=== PATIENT | male | born 1950 | race Caucasian/White ===

== ENCOUNTER 2018-04-18 05:30 | Observation (INO) | payer MEDICARE, BC ==
[~2018-04-18] VITALS: Ht 185.4 cm; Wt 93.4 kg
[2018-04-18 07:19] LABS: APTT 34.9 SECONDS (22.8-39.4)
[2018-04-18 07:20] LABS: BASOPHILS 2.7 % (0-2); EOSINOPHILS 10.6 % (0-7); HEMATOCRIT 31.4 % (42.0-54.0); HEMOGLOBIN 10.5 g/dL (13.5-17.5); IMMATURE GRANULOCYTES 0.2 % (0-5); LYMPHOCYTES 15.7 % (15-50); MCH 28.2 pg (26.0-34.0); MCHC 33.4 g/dL (31.0-37.0); MCV 84.4 fL (80.0-100.0); MEAN PLATELET VOLUME 9.3 fL (7.4-10.4); MONOCYTES 6.1 % (2-11); NEUTROPHILS 64.7 % (40-80); PLATELET COUNT 104 10x3/uL (130-400); RBC 3.72 10x6/uL (4.20-6.10); RDW 15.9 % (11.5-14.5); WBC 4.1 10x3/uL (4.8-10.8)
[2018-04-18 07:21] LABS: INR 1.33 (0.85-1.17)
[2018-04-18 07:24] LABS: ALBUMIN 3.1 g/dL (3.4-5.0); ANION GAP 23.1 mmol/L (8-16); BILIRUBIN - TOTAL 0.82 mg/dL (0.2-1.3); CALCIUM 7.4 mg/dL (8.5-10.1); CARBON DIOXIDE 16.2 mmol/L (21.0-32.0); CREATININE - SERUM 9.1 mg/dL (0.6-1.3); POTASSIUM - SERUM 4.3 mmol/L (3.5-5.1); PROTEIN - SERUM 6.2 g/dL (6.4-8.2)
[2018-04-18] MEDS ORDERED: HYDRALAZINE HCL50 MG PO (07:38)
[2018-04-18 07:47] VITALS: BP 182/93; BMI 27.2
--- NOTE | 2018-04-18 10:37 | NUR ---
ANES AT BEDSIDE, DISCHARGE CRITERIA MET
--- NOTE | 2018-04-18 10:45 | NUR ---
REC'D FROM RR. MOANING WITH PAIN HOWEVER HAD REC'D BURENEX IN RR AND IS ON O2 AT 4L/MIN NC. RATES PAIN 5/10. FALLS TO SLEEP WHEN TALKING WITH HIM.
--- NOTE | 2018-04-18 11:15 | NUR ---
CONTINUES TO LAY IWTH EYES CLOSED. FAMILY AT BEDSIDE. DRESSING CDI TO ABD.
--- NOTE | 2018-04-18 11:45 | NUR ---
DROWSY. AROUSES TO VERBAL STIMULI. ICE CHIPS BROUGHT TO PT. FAMILY AT BEDSIDE.
--- NOTE | 2018-04-18 12:45 | NUR ---
FL TRAY BROUGHT TO PT. TOLERATING ICE CHIPS.
--- NOTE | 2018-04-18 13:00 | NUR ---
PATIENT NAUSEATED WITH NO EMESIS. ABDOMINAL BINDER APPLIED TO ABDOMEN PER ORDERS.
--- NOTE | 2018-04-18 13:20 | NUR ---
ZOFRAN 4MG IV ADMINISTERED FOR NAUSEA. COOL CLOTH APPLIED TO HEAD. SCOPOLAMIN PATCH APPLIED. BEHIND PATIENT'S EAR.
--- NOTE | 2018-04-18 14:36 | NUR ---
CONTINUES TO SLEEP. HEAD OF BED RAISED. ENCOURAGED TO TRY AND EAT. FAMILY AT BEDSIDE.
--- NOTE | 2018-04-18 15:18 | NUR ---
EPISODE OF BEING NAUSEATED AFTER EATING PUDDING AND ICE CREAM. JELLO AND ICE CHIPS BROUGHT TO PATIENT. FAMILY AT BEDSIDE.
--- NOTE | 2018-04-18 16:10 | NUR ---
TOLERATED ICE CHIPS AND JELLO. IV DC'D WITH CATHETER INTACT. WRITTEN AND VERBAL DC INST. GIVEN TO PT'S . VERBALIZED UNDERSTANDING.
--- NOTE | 2018-04-18 16:15 | NUR ---
WHEN PATIENT'S SPOUSE STARTED HELPING HIM DRESS HE BEGAN TO TRY AND THROW UP AGAIN. BECOMES DIZZY WITH MOTION.
--- NOTE | 2018-04-18 16:55 | NUR ---
CALLED DR ELISE'S OFFICE HOWEVER HE IS AT THE [facility] TODAY.OFFICE GAVE ME CELL PHONE NUMBER. CALLED CELL NUMBER UNSUCCESSFULLY. MESSAGE AND NUMBER LEFT FOR CALL BACK.
--- NOTE | 2018-04-18 17:05 | NUR ---
COMES TO NURSE'S STATIONN RELATING HE GOT HIS PANTS ON AND RELATED THEY WERE READY. TOLD I HAD A CALL INTO DR ELISE AND WE WOULD SEE WHAT HE WANTS TO DO,
--- NOTE | 2018-04-18 17:30 | NUR ---
CALLED DR ELISE. RELATES TO ADMIT HIM TO DR NEGRON OBSERVATION BED ON MED 2.
--- NOTE | 2018-04-18 17:35 | NUR ---
SPOKE WITH SALES DEVELOPMENT REPRESENTATIVE FOR AN OBSERVATION BED.
--- NOTE | 2018-04-18 17:45 | NUR ---
SPOKE WITH ANSWERING SERVICE FOR DR NEGRON. EDUARDO LEFT FOR CALLBACK REGARDING ASDMISSION OF PATIENT.
--- NOTE | 2018-04-18 17:55 | NUR ---
Tu DALTON. ANP WITH NEPHROLOGY CALLED AND RELATED WOULD LET DOCTORS KNOW PATIENT IS BEING ADMITTED. NO ORDERS RECEIVED.
--- NOTE | 2018-04-18 17:55 | NUR ---
SARITA JORDNA, ANP WITH NEPHROLOGY CALLED AND RELATED WOULD LET DOCTORS KNOW PATIENT IS BEING ADMITTED. NO ORDER GIVEN.
--- NOTE | 2018-04-18 18:30 | NUR ---
ATTEMPTED TO START IV X2 STICKS UNSUCCESSFULLY. ONE ATTEMPT BY Aniya MORELOS RN.
--- NOTE | 2018-04-18 18:49 | NUR ---
REPORT CALLED TO Carlitos VALLE RN. TRANSFERRING TO ROOM 2138 VIA BED. AT BEDSIDE.
--- NOTE | 2018-04-18 19:00 | NUR ---
RECIEVED PT TO UNIT VIA HOSPITAL BED BY HOSPITAL STAFF FAMILY AT BEDSIDE V/S WNL , PT LETHARGIC BREATH SOUNDS EVEN UNLABORED , PD CATH IN RLQ ABDOMINAL BINDERED ON NO C/O PAIN OR DISTRESS AT THIS TIME CL IN REACH WILL CONT TO MONITOR
[2018-04-18 20:00] VITALS: BP 155/64
[2018-04-19 02:15] VITALS: Ht 185.4 cm; Wt 93.4 kg
[2018-04-19 04:00] VITALS: BP 116/69
--- NOTE | 2018-04-19 07:35 | NUR ---
ROUNDING DONE WITH AT BEDSDIE THIS AM. PATIENT REPORTS TO STILL BEING "SLIGHTLY DIZZY". NO NAUSEA. GLASSES ON. RESERVE LEFT ARM. RIGHT FA PIV SEEN WITH NS INFUSING AT 50 CC/HR, ORANGE SWAB CAP IN PLACE. ON ROOM AIR. ABDOMINAL BINDER IN PLACE. WILL LOOK AT PD CATH SITE WITH ASSESSMENT.
[2018-04-19 08:50] VITALS: BP 175/93
--- NOTE | 2018-04-19 09:09 | NUR ---
SPOKE WITH NATHANIEL JORDAN APN FOR CONTINUATION OF B/P HOME MEDS. NEW ORDERS RECEIVED.
--- NOTE | 2018-04-19 12:22 | NUR ---
DR LOWE IN TO SEE PATIENT.
[2018-04-19 12:40] VITALS: BP 160/82
--- NOTE | 2018-04-19 13:44 | NUR ---
INFORMED PATIENT AND THAT PATIENT NEEDS TO VOID TODAY BEFORE DISCHARGE.
--- NOTE | 2018-04-19 15:26 | NUR ---
PATIENT STILL HAS NOT VOIDED THIS SHIFT AND I CAN NOT FIND ANY OUTPUT FROM LAST SHIFT. BLADDER SCAN DONE WITH RESIDUAL OF 647 ML. I CALLED NATHANIEL JORDAN APN TO LET HER KNOW. NEW ORDERS RECEIVED.
--- NOTE | 2018-04-19 15:33 | NUR ---
PATIENT DOES NOT HAVE A UROLOGIST SO IN AND OUT CATH WILL BE DONE.
--- NOTE | 2018-04-19 16:13 | NUR ---
IN AND OUT DONE HAVING TO USE A 14 FR. COUDE CATH. URINE IS CLEAR YELLOW URINE.
[2018-04-19 16:42] VITALS: BP 164/89
--- NOTE | 2018-04-19 17:53 | NUR ---
DR LOWE HERE TO SEE PATIENT. NEW ORDERS RECEIVED.
--- NOTE | 2018-04-19 19:40 | NUR ---
AWAKE BUT CONFUSED IS ORIENTED TO NAME, LCTA AND SKIN WARM AND DRY DINIES NEEDS ENCOUARAGED TO VOID. BED LOW AND CALL LIGHT IN REACH
[2018-04-19 20:00] VITALS: BP 170/83
--- NOTE | 2018-04-19 21:51 | NUR ---
PT UP And dressed confused about situation. attempted to contact family with no success in hoppes they may want to sit with patent.
--- NOTE | 2018-04-19 22:35 | NUR ---
CONTINUES TO REMAIN DRESSED AND STANDING IN ROOM STATES HE IS WAITING ON HIS TO GO HOME ATTEMPS TO REDIRECT HAVE FAILED.
--- NOTE | 2018-04-19 23:19 | NUR ---
PT WAS CONVIENCED TO PUT GOWN ON AND GO BACK TO BED. LOWER EXTREMITIES NOTED TO BE VERY SWOLLEN AT THIS NATALIA PITTING TIMES 3.
[2018-04-20] VITALS: BP 170/80
[2018-04-20 04:00] VITALS: BP 172/81
--- NOTE | 2018-04-20 04:55 | NUR ---
UP AND DRESSED WONDERING THE UNIT STILL CONFUSED TO SITUATION. ESCORTED BACK TO ROOM AT THS TIME
--- NOTE | 2018-04-20 07:20 | NUR ---
PT UP AND DRESSED. ALERT AND ORIENTEDX4. PT SHOWED ME HIS URINAL, PT HAS URINATED 50CC BUT STATES HE'S WENT SEVERAL OTHER TIMES THORUGHOUT THE NIGHT JUST NOT IN THE URINAL. WILL PROCEDE WITH PTS D/C. NI TO PICK PT UP. D/C IS NOT DONE YET.
[2018-04-20 08:48] VITALS: BP 138/82
--- NOTE | 2018-04-20 09:26 | NUR ---
PT ESCORTED OUT VIA WHEELCHAIR TO POV. DRIVING. NO CONCERNS/COMPLAINTS EXPRESSED AT D/C.
--- NOTE | 2018-04-20 10:25 | MORECARE ---
CASE MANAGEMENT DISCHARGE SUMMARY PATIENT: KAYLA CALDERON UNIT: [id number] ADM DATE: 04/18/18 AGE: 67 : 49 SEX: M ROOM/BED: D.2138 AUTHOR: BEBO RICHEY PHYSICIAN: REFERRING PHYSICIAN: JAVIER NEGRON MD DATE OF SERVICE: 04/20/18 Discharge Plan Patient Name: KAYLA CALDERON Facility: [facility]:[place] : 1950 Planned Disposition: Home Anticipated Discharge Date: 04/20/18 Discharge Date: 04/20/2018 Expected LOS: 2 Initial Reviewer: [email or web address] Initial Review Date: 04/20/2018 Generated: 04/20/18 11:24 am Patient Name: KAYLA CALDERON Page [id number] at 1025 All edits/amendments must be made on the electronic document DICTATION DATE: 04/20/18 1024 NON LICENSED NUCLEAR PLANT OPERATOR: HAYLEY 04/20/18 1024 RPT#: [id number] DC DATE:04/20/18 STATUS: DIS IN [facility] [address] [place] [address] END OF REPORT
== END 2018-04-20 09:26 | disposition home or self-care (01) ==
LOC: D.OPS 05:30 → D.SDCHOLD 17:46 → OBSVTIME 17:46 → D.M2 18:52 → D.OPS 05-01 08:00
PROVIDERS: Anesthesiology; ADMIT Surgery; ATTEND Internal Medicine Nephrology
DX: N18.5 Chronic kidney disease, stage 5 (principal)

== ENCOUNTER 2018-05-01 06:10 | Observation (INO) | payer MEDICARE, BC ==
[~2018-05-01] VITALS: Ht 182.9 cm; Wt 92.5 kg
[~2018-05-01 06:10] MED LIST: HYDRALAZINE HCL50 MG PO
[2018-05-01 06:31] LABS: BASOPHILS 1.3 % (0-2); HEMATOCRIT 30.7 % (42.0-54.0); HEMOGLOBIN 10.1 g/dL (13.5-17.5); IMMATURE GRANULOCYTES 0.2 % (0-5); LYMPHOCYTES 14.3 % (15-50); MCH 27.9 pg (26.0-34.0); MCHC 32.9 g/dL (31.0-37.0); MCV 84.8 fL (80.0-100.0); MONOCYTES 4.7 % (2-11); NEUTROPHILS 65.5 % (40-80); PLATELET COUNT 103 10x3/uL (130-400); RBC 3.62 10x6/uL (4.20-6.10); RDW 15.1 % (11.5-14.5); WBC 5.5 10x3/uL (4.8-10.8)
[2018-05-01 06:42] LABS: ANION GAP 18.8 mmol/L (8-16); CALCIUM 7.7 mg/dL (8.5-10.1); CARBON DIOXIDE 22.3 mmol/L (21.0-32.0); POTASSIUM - SERUM 4.1 mmol/L (3.5-5.1)
[2018-05-01 06:49] LABS: INR 1.19 (0.85-1.17); PROTIME 14.6 SECONDS (11.6-15.0)
[2018-05-01] MEDS ORDERED: LASIX40 MG PO (07:52)
[2018-05-01] MEDS ORDERED: TUMS X-STR300 MG PO (07:54)
--- NOTE | 2018-05-01 08:08 | NUR ---
OR, MEI Bennett NOTIFIED IV NOT STARTED & TO NOTE SURGERY CONSENT STATES BOTH LUE & RUE POSSIBLE SITES FOR AV FISTULA. Valdo PINEDA R.N.
[2018-05-01 08:18] VITALS: BMI 27.2
[2018-05-01] MEDS ORDERED: HYDROCODON-ACE1 EAC7 PO (12:14)
[2018-05-01] MEDS ORDERED: FLOMAX0.4 MG PO (12:16)
[2018-05-01 18:20] VITALS: BP 163/91; BMI 27.7
--- NOTE | 2018-05-01 18:32 | NUR ---
ARRIVED FROM OPS. VERY SLEEPY. POST OP AV FISTULA CREATIONS IN L WRIST. BLOCK DONE ON L ARM. DRESSING CLEAN AND DRY. ICE TO ABD ORDERED. DRESSINGS ON ABD BLOOD TINGED. ORDERS BY DR. ELISE NOT TO TOUCH ABD DRESSINGS. 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 SLING ON L ARM. IV INFUSING WELL. NO NAUSEA.
--- NOTE | 2018-05-01 18:59 | NUR ---
KALYANI WITH RENAL CONTACTED AT PT ARRIVAL.
--- NOTE | 2018-05-01 19:10 | NUR ---
RECIEVED BEDSIDE REPORT FROM MILDRED PEREZ. PT ALERT AND ORIENTED WITH AT BEDSIDE. PT DENIES ANY PAIN OR NEEDS AT THIS TIME. BED LOW CALL LIGHT WITHIN REACH. WILL CONTINUE TO MONITOR.
[2018-05-01 20:38] VITALS: BP 185/93
[2018-05-01 23:40] VITALS: BP 138/81
--- NOTE | 2018-05-02 01:56 | NUR ---
PT REQUESTED JELLO AND VANILLA PUDDING. PT RECIEVED JELLO AND VANILLA PUDDING. NO S/S OF DISTRESS. BED LOW CALL LIGHT WITHIN REACH. WILL CONTINUE TO MONITOR.
--- NOTE | 2018-05-02 03:19 | NUR ---
I have reviewed this patient and I concur with the Shift Assessment completed by the Licensed Practical Nurse today this shift.
[2018-05-02 05:21] VITALS: BP 173/90
[2018-05-02 09:39] VITALS: Ht 182.9 cm; Wt 92.5 kg
--- NOTE | 2018-05-02 10:08 | NUR ---
RECIEVED ORDER TO D/C PT. PIV TO PT RIGHT FA REMOVED WITH CATHETER TIP INTACT. TELEMETRY REMOVED AND TAKEN TO VENEER MARKER. ASSISTED PT WITH DRESSING BACK IN HIS NORMAL CLOTHES. DENIES ANY OTHER NEEDS AT THIS TIME, WILL CONT TO FOLLOW PLAN OF CARE
[2018-05-02] MEDS ORDERED: HYDROCODON-ACE1 EAC7 PO (10:13)
--- NOTE | 2018-05-02 11:05 | NUR ---
DISCHARGE INSTRUCTIONS REVIEWED WITH PT, ALL QUESTIONS ANSWERED. PT ASSITED TO FRONT OF HOSPITAL VIA WHEELCHAIR. LEFT WITH SPOUSE
--- NOTE | 2018-05-02 17:21 | MORECARE ---
CASE MANAGEMENT DISCHARGE SUMMARY PATIENT: KAYLA CALDERON UNIT: [id number] ADM DATE: 05/01/18 AGE: 67 : 49 SEX: M ROOM/BED: D.2139 AUTHOR: BEBO RICHEY PHYSICIAN: REFERRING PHYSICIAN: KAROLYN TOMLIN MD DATE OF SERVICE: 05/02/18 Discharge Plan Patient Name: KAYLA CALDERON [facility] [facility] 1950 Planned Disposition: Home Anticipated Discharge Date: 05/02/18 Discharge Date: 05/02/2018 Expected LOS: 1 Initial Reviewer: [email or web address] Initial Review Date: 05/02/2018 Generated: 05/02/18 6:21 pm Patient Name: KAYLA CALDERON Page [phone] at 1721 All edits/amendments must be made on the electronic document DICTATION DATE: 05/02/181719 ADMINISTRATIVE FELLOW: HAYLEY 05/02/181719 RPT#: [id number] DC DATE:05/02/18 STATUS: DIS IN [facility] [address] [facility] [place] [address] END OF REPORT
--- NOTE | 2018-05-04 11:31 | OP ---
PATIENT NAME: KAYLA CALDERON MEDICAL RECORD: [id number] :[birth year] LOCATION:D.M2 D.2139 ADMISSION DATE:05/01/18 SURGEON: JULIAN ELISE MD DATE OF OPERATION: 05/01/2018 REFERRED BY: Rufus Negron MD PREOPERATIVE DIAGNOSES: CKD V, needing to start dialysis; and peritoneal dialysis catheter mechanical complication. POSTOPERATIVE DIAGNOSES: CKD V, needing to start dialysis; and peritoneal dialysis catheter mechanical complication. OPERATIONS PERFORMED: 1. Creation of a left wrist radiocephalic Gloria-type AV fistula. 2. Laparoscopy with removal of existing peritoneal dialysis catheter and insertion of peritoneal dialysis catheter in different locations. SURGEON: Julian Elise MD ANESTHESIA: General endotracheal plus regional nerve block per TARIFF COUNSEL. PREOPERATIVE NOTE: Mr. Calderon is a 67-year-old white male patient with chronic kidney disease, nearing end stage, and he needs to start dialysis. He has had a peritoneal dialysis catheter placed; however, it will not drain and so he is to go back to the operating room today for laparoscopic revision and possible replacement. He also has no other way to dialyze and he is to have an AV fistula created. At this time, there is no plan to insert an acute hemodialysis catheter. DESCRIPTION OF PROCEDURE: Under general anesthesia and after nerve block was administered, the patient was prepped and draped in sterile manner. Topical nitroglycerin ointment was applied to the forearm and a Jovanna drain was used as a proximal venous tourniquet. The cephalic vein at the wrist stood up nicely and was about 3.5 mm in diameter. I examined it with duplex ultrasound and noted it to be patent up the arm and it was of good caliber at the wrist. The radial artery appeared to be of good caliber, about 3.5 mm in diameter and without calcification. I elected to go ahead with a wrist fistula. A longitudinal incision was made and the vessel was mobilized. The artery was controlled with Silastic loops. The vein was transected and bevelled. It was ligated distally. The vein was flushed with heparinized saline and treated with topical papaverine and hydrostatically distended. The artery was occluded and an arteriotomy made and the artery gently dilated with coronary artery dilator and then flushed with heparinized saline and it too was treated with topical papaverine. An end-to-side, end of vein to side of artery anastomosis was then completed with running 7-0 Prolene; and when the suture line was complete and the occluding loops were released, the suture line was hemostatic and an excellent pulsation and thrill developed immediately within the new fistula. Doppler examination revealed pulsatile continuous flow in the vein and good pulsatile flow in the radial artery proximal and distal to the anastomosis. The wound was closed with interrupted inverted 3-0 Vicryl and running intracuticular 4-0 Monocryl and Dermabond glue. It was dressed with Maxorb Ag, Tegaderm, and Cavilon skin prep. OPERATIVE REPORT [id number] KAYLA CALDERON The patient's arm was then tucked to his side and the abdomen, which had been prepped and draped, was exposed. I insufflated the abdomen with carbon dioxide through the existing peritoneal dialysis catheter and inserted a 5-mm 0-degree laparoscope and a 5-mm XL Optiview port through a small incision in the left upper quadrant. I found that there really were no adhesions in the pelvis or adhesions to the catheter itself. It was simply, I think, too deep in the pelvis, which was quite narrow pelvis and occupied almost fully by rectosigmoid colon. I can see how it would fill easily, but then suck up against the colon when attempts to drain were made. I ended up removing that catheter. I reopened the right-sided paramedian incision and removed the pursestring suture in the anterior rectus sheath and then extracted the catheter. The Dacron felt cuff was not well seated at all in the subcutaneous tunnel and it was easy to remove, it was discarded. A new right-sided Medcomp dialysis catheter, dual cuff swan neck coil was chosen. I inserted an introducer needle through the anterior rectus fascia at a much higher level, actually slightly above the level of the umbilicus; and as far as possible, tried to pass the needle through or within the substance of the rectus muscle before penetrating the peritoneum. I then inserted a dilator peel-away introducer sheath and lastly the new catheter was inserted. I positioned the coil in the upper pelvis, considerably higher than the first one. The catheter was pulled through a subcutaneous tunnel, leaving the superficial Dacron felt cuff several centimeters from the skin exit site, a new site having been made; and the deeper cuff was placed in the rectus muscle and a pursestring suture in the anterior rectus sheath placed. This was #0 Vicryl. The wound was irrigated with saline and Ancef/gentamicin solution and infiltrated with 0.25% Marcaine. The catheter was flushed with approximately 400 cc of saline, which we then demonstrated to drain nicely. The catheter was heparin locked, clamped, and capped. The paramedian incision was closed with interrupted inverted 3-0 Vicryl and then robbie. The two 5-mm port sites, one in the left upper quadrant and the working port site in the left lower quadrant, were infiltrated with Marcaine and the skin was closed with interrupted inverted 3-0 Vicryl and Dermabond glue. The catheter at the exit site was dressed with chlorhexidine Biopatch and Tegaderm, and then coiled and covered with a 4 x 4 Medipore dressing. The other incisions were dressed with Maxorb Ag, Tegaderm, and Cavilon skin prep. The patient was then awakened from his anesthetic, extubated, and taken to the recovery room. Blood loss during the operation was about 10 cc, was unreplaced. Sponges, instruments, and needles were accounted for. No drain was used. I did not have a surgical specimen to submit for histopathology. PLAN: Assuming the patient does not have severe postoperative nausea and vomiting like he did last time and that his mental status is sufficiently close to baseline, he will be able to go home and follow up with the peritoneal dialysis nurse to have his catheter flushed tomorrow. If there is any problem with postop nausea and vomiting, mental status change, etc., he will be kept in observation. I have plans to see him in my office in about 2 weeks. Hopefully, he will be doing rapid exchange peritoneal dialysis by then. TRANSINT:[id number] Voice Confirmation ID: [id number] DOCUMENT ID: [id number] OPERATIVE REPORT [id number] KAYLA CALDERON JAMES MD at 1131 CC: RUFUS NEGRON [id number] DICTATION DATE: 05/01/18 1242 FORMAL SERVICE WAITER: 05/01/18 1334 DIS IN 05/02/18 [facility] [address] [place] [address]
== END 2018-05-02 11:06 | disposition home or self-care (01) ==
LOC: D.OPS 06:10 → D.M2 16:31 → D.SDCHOLD 16:31 → OBSVTIME 16:31 → D.OPS 17:15 → D.M2 18:09
PROVIDERS: Surgery; ADMIT Internal Medicine Nephrology; ATTEND Internal Medicine Nephrology
DX: T85.691A Other mechanical complication of intraperitoneal dialysis catheter, initial encounter (principal); E11.22 Type 2 diabetes mellitus with diabetic chronic kidney disease; I12.0 Hypertensive chronic kidney disease with stage 5 chronic kidney disease or end stage renal disease; N18.5 Chronic kidney disease, stage 5; E11.40 Type 2 diabetes mellitus with diabetic neuropathy, unspecified; Z72.0 Tobacco use; R41.82 Altered mental status, unspecified; Y83.9 Surgical procedure, unspecified as the cause of abnormal reaction of the patient, or of later complication, without mention of misadventure at the time of the procedure

== ENCOUNTER → 2018-11-07 14:21 | Outpatient (CLI) | payer MEDICARE, BC ==
[2018-05-02 09:39] VITALS: BMI 27.6
[~2018-11-07 14:21] MED LIST changes: +FLOMAX0.4 MG PO; +HYDROCODON-ACE1 EAC7 PO; +LASIX40 MG PO; +TUMS X-STR300 MG PO
== END | disposition home or self-care (01) ==
LOC: D.RAD 14:21
PROVIDERS: ATTEND Internal Medicine Nephrology
DX: M25.511 Pain in right shoulder (principal)